=== PATIENT | male | born 1985 | race Caucasian/White ===

== ENCOUNTER 2024-07-31 01:13 | Emergency (ER) | payer SELFPAY ==
[~2024-07-31] VITALS: Ht 157.5 cm; Wt 64.0 kg
[2024-07-31 01:21] VITALS: O2SAT 96
[2024-07-31 01:45] LABS: BASOPHILS % 0.9 % (0.0-2.0); HEMATOCRIT. 41.3 % (42.0-52.0); HEMOGLOBIN. 13.8 g/dL (14.0-18.0); LYMPHOCYTES % 30.3 % (20.0-50.0); MEAN CORPUSCULAR HEMOGLOBIN 29.5 pg (28.0-32.0); MEAN CORPUSCULAR HGB CONC 33.4 g/dL (31.0-37.0); MEAN CORPUSCULAR VOLUME 88.4 fL (80.0-94.0); MEAN PLATELET VOLUME 7.8 fl (7.4-10.4); MONOCYTES % 8.6 % (2.0-8.0); NEUTROPHILS % 56.2 % (40.0-76.0); PLATELET 225 x1000/uL (130-400); RED BLOOD CELL COUNT 4.67 mill/uL (4.7-6.1); RED CELL DISTRIBUTION WIDTH 13.6 % (11.6-14.6); WHITE BLOOD COUNT 8.9 x1000/uL (4.5-11.0)
[2024-07-31 01:53] LABS: CHLORIDE 107 mEq/L (98-107); POTASSIUM 3.5 mEq/L (3.5-5.1); SODIUM 141 mEq/L (136-145)
[2024-07-31 01:54] LABS: CALCIUM 8.5 mg/dL (8.7-10.4); CARBON DIOXIDE 28 mEq/L (21-32)
[2024-07-31 01:57] VITALS: BP 125/90; PULSE 91; RESP 16; TEMP 36.9; O2SAT 100
[2024-07-31 01:59] LABS: CREATININE 0.7 mg/dL (0.6-1.3); ETHANOL BLOOD < 10 mg/dL (<10); GLUCOSE 112 mg/dL (70-105); UREA NITROGEN BLOOD 13 mg/dL (9-23)
[2024-07-31 02:01] LABS: ACETAMINOPHEN < 2 ug/mL (10-30); ALANINE AMINOTRANSFERASE 32 IU/L (10-49); ALBUMIN 4.1 g/dL (3.2-4.8); ASPARTATE AMINOTRANSFERASE 46 IU/L (<34); BILIRUBIN DIRECT < 0.1 mg/dL (<=3.0); BILIRUBIN TOTAL 0.3 mg/dL (0.1-1.0); PROTEIN TOTAL 7.5 g/dL (6.0-8.3)
[2024-07-31] MEDS ORDERED: OLANZAPINE 5MG TABLET PO SCH (09:00)
== END 2024-07-31 02:05 | disposition left against medical advice (07) ==
LOC: ER 01:13
DX: R44.0 Auditory hallucinations (principal); Z91.148 Patient's other noncompliance with medication regimen for other reason; Z00.00 Encounter for general adult medical examination without abnormal findings; Z53.21 Procedure and treatment not carried out due to patient leaving prior to being seen by health care provider
CPT/HCPCS: 36415; 80048; 80076; 80307; 80320; 80329; 85025; 99283; G0480

== ENCOUNTER 2024-09-14 21:21 | Emergency (ER) | payer OTHER ==
[~2024-09-14] VITALS: Ht 160 cm; Wt 68.0 kg
[2024-09-14 21:29] VITALS: BP 116/80; PULSE 100; RESP 18; TEMP 36.9; O2SAT 100
[2024-09-14] MEDS ORDERED: KETOROLAC 15MG/ML VIAL IM ONE (22:15)
[2024-09-14] MEDS ORDERED: METOCLOPRAMIDE HCL 10MG TABLET PO ONE (22:15)
== END 2024-09-15 00:31 | disposition home or self-care (01) ==
LOC: ER 21:21
DX: R51.9 Headache, unspecified (principal); F20.9 Schizophrenia, unspecified; F10.90 Alcohol use, unspecified, uncomplicated; Y90.9 Presence of alcohol in blood, level not specified
CPT/HCPCS: 99283